=== PATIENT | male | born 1995 | race African-American/Black ===

== ENCOUNTER 2018-10-29 16:36 | Emergency (ER) | payer OTHER, SELFPAY ==
[2018-10-29 16:41] VITALS: BP 148/83; PULSE 130; RESP 16; TEMP 37; O2SAT 97
[2018-10-29 17:38] LABS: Bilirubin Negative (Negative); Blood Negative (Negative); Clarity Clear; Glucose Negative (Negative); Ketones Trace mg/dL (Negative); Leukocyte Esterase Negative (Negative); Nitrite Negative (Negative); Specific Gravity 1.025 (1.005-1.025); Urobilinogen 0.2 EU/dL (Up TO 0.2); pH 5.5 (5-8)
--- NOTE | 2018-10-29 17:48 | W.ED.GENAD ---
Discharge Plan Disposition Patient Disposition: HOME Condition: Good Discharge Details Chief Complaint: Urinary Clinical Impression: Urethritis Primary Care Provider: [facility] ED Provider: Anthony Hein Home Meds and New Rx's Prescriptions: No Action No Known Home Meds RF: 0 Discharge Instructions Instructions: Nonspecific Urethritis in Men (ED) Additional Instructions: Return immediately to the emergency department for any new or worsening symptoms. If your test results come back positive we will contact you and have you return for recommended treatment. Continue to practice safe sex to prevent STI transmission and exposure Referrals: Primary Care Provider [Outside] (As needed for reassessment. He may also present to [facility] for any further testing for sexually transmitted infections) Discharge Data Discharge Date/Time-TO BE ENTERED AT DEPARTURE: 10/29/18 18:12 Medical Decision Making Patient presenting to the emergency department for chief complaint of urethritis. Patient states that symptoms started yesterday. Patient reports history of gonorrhea chlamydia approximately 7 years ago which she received appropriate treatment for and this does not feel similar in nature but due to unprotected sex approximately a month ago patient states concern and is requesting screening test. Patient denies any fever chills, rash, lesion, persistent pain or discomfort, sores, or any other medical complaint at this time. Physical exam is unremarkable with no discharge noted, no painless lesions, no open sores or vesicles. Discussed with patient gonorrhea chlamydia testing that could be sent along with immediate urinalysis for evaluation. Review of tests show no acute findings on urinalysis but I did discuss with patient risk versus benefit of prophylactic treatment. Patient states that he feels that this is just more mental due to previous exposure and that he states for the most part he is asymptomatic but due to unprotected sex he was concerned. Patient was offered prophylactic treatment which at this time he stated he would prefer to wait for final results of urine specimen. Patient encouraged to return for any new or worsening symptoms and to remain abstinent until test results were received. After discussion of diagnosis and plan of care patient has no further needs, questions, or concerns and states clear understanding to return to the emergency department for any worsening symptoms. HPI General Mode of arrival: ambulatory. Date/Time Provider Initiated Documentation: 10/29/18 16:37. Limitations to Documentation: no limitations. Information obtained by: RN notes reviewed. History of Present Illness 23 year old M presents to the emergency department with the chief complaint of Urethral discomfort, described as mild, with intensity rated at 1. Quality is described as other (pressure), and is localized to the genitals. Patient reports no radiation. Patient started experiencing this day(s) and it has been intermittent. No relieving factors improve symptom(s), No exacerbating factors reported . Patient notes no other symptoms.. Patient did receive the following treatments prior to arrival, none Related Data Home Medications Medication Instructions Recorded Confirmed Unknown [No Known Home Meds] 05/19/18 10/29/18 Allergies Allergy/AdvReac Type Severity Reaction Status Date / Time amoxicillin Allergy Severe Anaphylaxsi Unverified 10/29/18 16:45 s Penicillins Allergy Severe Anaphylaxsi Unverified 10/29/18 16:45 s General Stated Complaint: Urinary SINDHU: 4 Review of Systems Constitutional Denies body ache(s), Denies chills, Denies fever(s), Denies malaise and Denies weakness Cardiovascular Denies chest pain Gastrointestinal Denies abdominal pain, Denies nausea and Denies vomiting Genitourinary Reports as per HPI, Denies hematuria, Denies difficulty urinating, Denies genital lesions, Denies dysuria, Denies painful ejaculations, Denies penile discharge, Denies scrotal swelling and Denies urinary urgency Integumentary/Breasts Denies lesions and Denies rash Neurologic Denies confusion and Denies weakness Psychiatric [facility] Social History Smoking/Tobacco Use Status: Former Tobacco Use Social History Smoking/Tobacco Use Status: Former Tobacco Use Exam Const General: cooperative, healthy appearing, comfortable and no acute distress Orientation: alert, awake and oriented x3 Resp Effort & Inspection: normal respiratory effort and able to speak in complete sentences GI Palpation: nontender Male General Exam: Yes normal external exam and No inguinal lymphadenopathy Penis: normal penis Meatus: meatus normal and no meatla discharge Scrotum: scrotum normal Testes: normal, testicular lie normal and epididymides normal Back/Spine/Pelvis Back: no CVA tenderness Neuro General: alert, awake and oriented x3 Extrem General: normal capillary refill Course Vital Signs Temperature 37 C 10/29/18 16:41 Pulse 130 H 10/29/18 16:41 Respiratory Rate 16 10/29/18 16:41 Blood Pressure 148/83 H 10/29/18 16:41 Pulse Oximetry 97 10/29/18 16:41 Temperature 37 C 10/29/18 16:41 Temperature Source Skin 10/29/18 16:41 Pulse 130 H 10/29/18 16:41 Respiratory Rate 16 10/29/18 16:41 Respiratory Effort 10/29/18 16:41 Blood Pressure 148/83 H 10/29/18 16:41 Blood Pressure Position Sitting 10/29/18 16:41 Pulse Oximetry 97 10/29/18 16:41 Oxygen Delivery Method Room Air 10/29/18 16:41 Oxygen Flow Rate 0 10/29/18 16:41 Pain Level 0 10/29/18 16:41 Lab/Test Results Lab/Test Results: Laboratory Tests Range/Units 10/29/18 17:25 Urine Color (Yellow) Yellow Urine Clarity Clear Urine pH (5-8) 5.5 Ur Specific [place] (1.005-1.025) 1.025 Urine Protein (Negative) mg/dL Negative Urine Ketones (Negative) mg/dL Trace H Urine Blood (Negative) Negative Urine Nitrite (Negative) Negative Urine Bilirubin (Negative) Negative Urine Urobilinogen (Up TO 0.2) EU/dL 0.2 Ur Leukocyte Esterase (Negative) Negative Urine Glucose (Negative) mg/dL Negative
--- NOTE | 2018-10-29 17:51 | ED.GENADUL_ITS ---
Discharge Plan Disposition Patient Disposition: HOME Condition: Good Discharge Details Chief Complaint: Urinary Clinical Impression: Urethritis Primary Care Provider: MilenaLocal ED Provider: Anthony Hein Home Meds and New Rx's Prescriptions: No Action No Known Home Meds RF: 0 Discharge Instructions Instructions: Nonspecific Urethritis in Men (ED) Additional Instructions: Return immediately to the emergency department for any new or worsening symptoms. If your test results come back positive we will contact you and have you return for recommended treatment. Continue to practice safe sex to prevent STI transmission and exposure Referrals: Primary Care Provider [Outside] (As needed for reassessment. He may also present to [facility] for any further testing for sexually transmitted infections) Discharge Data Discharge Date/Time-TO BE ENTERED AT DEPARTURE: 10/29/18 18:12 Medical Decision Making Patient presenting to the emergency department for chief complaint of urethritis. Patient states that symptoms started yesterday. Patient reports history of gonorrhea chlamydia approximately 7 years ago which she received appropriate treatment for and this does not feel similar in nature but due to unprotected sex approximately a month ago patient states concern and is requesting screening test. Patient denies any fever chills, rash, lesion, persistent pain or discomfort, sores, or any other medical complaint at this time. Physical exam is unremarkable with no discharge noted, no painless lesions, no open sores or vesicles. Discussed with patient gonorrhea chlamydia testing that could be sent along with immediate urinalysis for evaluation. Review of tests show no acute findings on urinalysis but I did discuss with patient risk versus benefit of prophylactic treatment. Patient states that he feels that this is just more mental due to previous exposure and that he states for the most part he is asymptomatic but due to unprotected sex he was concerned. Patient was offered prophylactic treatment which at this time he stated he would prefer to wait for final results of urine specimen. Patient encouraged to return for any new or worsening symptoms and to remain abstinent until test results were received. After discussion of diagnosis and plan of care patient has no further needs, questions, or concerns and states clear understanding to return to the emergency department for any worsening symptoms. HPI General Mode of arrival: ambulatory . Date/Time Provider Initiated Documentation: 10/29/18 16:37 . Limitations to Documentation: no limitations . Information obtained by: RN notes reviewed . History of Present Illness 23 year old M presents to the emergency department with the chief complaint of Urethral discomfort, described as mild, with intensity rated at 1. Quality is described as other (pressure), and is localized to the genitals. Patient reports no radiation. Patient started experiencing this day(s) and it has been intermittent. No relieving factors improve symptom(s), No exacerbating factors reported . Patient notes no other symptoms.. Patient did receive the following treatments prior to arrival, none Related Data Home Medications Medication Instructions Recorded Confirmed Unknown [No Known Home Meds] 05/19/18 10/29/18 Allergies Allergy/AdvReac Type Severity Reaction Status Date / Time amoxicillin Allergy Severe Anaphylaxsi Unverified 10/29/18 16:45 s Penicillins Allergy Severe Anaphylaxsi Unverified 10/29/18 16:45 s General Stated Complaint: Urinary SINDHU: 4 Review of Systems Constitutional Denies body ache(s), Denies chills, Denies fever(s), Denies malaise and Denies weakness Cardiovascular Denies chest pain Gastrointestinal Denies abdominal pain, Denies nausea and Denies vomiting Genitourinary Reports as per HPI, Denies hematuria, Denies difficulty urinating, Denies genital lesions, Denies dysuria, Denies painful ejaculations, Denies penile discharge, Denies scrotal swelling and Denies urinary urgency Integumentary/Breasts Denies lesions and Denies rash Neurologic Denies confusion and Denies weakness [facility] Social History Smoking/Tobacco Use Status: Former Tobacco Use Social History Smoking/Tobacco Use Status: Former Tobacco Use Exam Const General: cooperative, healthy appearing, comfortable and no acute distress Orientation: alert, awake and oriented x3 Resp Effort & Inspection: normal respiratory effort and able to speak in complete sentences GI Palpation: nontender Male General Exam: Yes normal external exam and No inguinal lymphadenopathy Penis: normal penis Meatus: meatus normal and no meatla discharge Scrotum: scrotum normal Testes: normal, testicular lie normal and epididymides normal Back/Spine/Pelvis Back: no CVA tenderness Neuro General: alert, awake and oriented x3 Extrem General: normal capillary refill Course Vital Signs Temperature 37 C 10/29/18 16:41 Pulse 130 H 10/29/18 16:41 Respiratory Rate 16 10/29/18 16:41 Blood Pressure 148/83 H 10/29/18 16:41 Pulse Oximetry 97 10/29/18 16:41 Temperature 37 C 10/29/18 16:41 Temperature Source Skin 10/29/18 16:41 Pulse 130 H 10/29/18 16:41 Respiratory Rate 16 10/29/18 16:41 Respiratory Effort 10/29/18 16:41 Blood Pressure 148/83 H 10/29/18 16:41 Blood Pressure Position Sitting 10/29/18 16:41 Pulse Oximetry 97 10/29/18 16:41 Oxygen Delivery Method Room Air 10/29/18 16:41 Oxygen Flow Rate 0 10/29/18 16:41 Pain Level 0 10/29/18 16:41 Lab/Test Results Lab/Test Results: Laboratory Tests Range/Units 10/29/18 17:25 Urine Color (Yellow) Yellow Urine Clarity Clear Urine pH (5-8) 5.5 Ur Specific [place] (1.005-1.025) 1.025 Urine Protein (Negative) mg/dL Negative Urine Ketones (Negative) mg/dL Trace H Urine Blood (Negative) Negative Urine Nitrite (Negative) Negative Urine Bilirubin (Negative) Negative Urine Urobilinogen (Up TO 0.2) EU/dL 0.2 Ur Leukocyte Esterase (Negative) Negative Urine Glucose (Negative) mg/dL Negative
[2018-11-02 14:23] LABS: Chlamydia Result Negative; GC Result Negative; Specimen Description URINE
== END 2018-10-29 18:12 | disposition home or self-care (01) ==
LOC: ER 18:14
PROVIDERS: Emergency Provider Nurse Practitioner Family
DX: N34.1 Nonspecific urethritis (principal)
CPT/HCPCS: 87491; 87591; 99282; 81003

== ENCOUNTER 2019-10-25 16:50 | Emergency (ER) | payer BC, SELFPAY ==
[2019-10-25 16:53] VITALS: BP 151/90; PULSE 123; RESP 20; TEMP 39.3; O2SAT 97
[2019-10-25] MEDS: Acetaminophen 500 MG TAB 1000 MG PO (17:25)
[2019-10-25] MEDS: Ketorolac 30 MG/ML VIAL IVP (17:25)
[2019-10-25] MEDS: Normal Saline 1,000 ML 1000 ML IV (17:25)
--- NOTE | 2019-10-25 17:26 | W.ED.GENAD ---
Discharge Plan Disposition Patient Disposition: HOME Condition: Good Discharge Details Chief Complaint: RespSymp Clinical Impression: Viral illness Primary Care Provider: Milena,Local ED Provider: Luiz Lemos Home Meds and New Rx's Prescriptions: New oseltamivir [Tamiflu] 75 mg capsule 75 mg PO BID 5 Days Qty: 10 RF: 0 No Action ibuprofen [Advil] 200 mg Tablet 800 mg PO PRN PRNRF: 0 Discharge Instructions Instructions: Viral Syndrome (ED) Additional Instructions: At this time you if symptoms notably concerning for a viral illness. Although your flu test is negative I suspect that it is from influenza. At this time you show no evidence of meningitis, however your symptoms can always worsen, and if they do you need to return immediately. Please take the Tamiflu as directed. Please take maximum dose of 1000 mg of Tylenol and 800 mg of ibuprofen every 6 hours. Please drink 10 to 12 cups of fluid per day. Please rest as much as possible, wear a mask whenever you are in public, and wash your hands frequently. If you notice any worsening of your symptoms, or any new symptoms such as vomiting, diarrhea, fever, chills, shortness of breath, chest pain, numbness, weakness, or fainting , please return immediately to the emergency department for reevaluation. Please follow up with your primary care provider as soon as possible for reassessment and reevaluation. As always, it was a pleasure participating in your medical care today. Stand Alone Forms: Work Release Medical Decision Making This is a pleasant 24-year-old male who presents today for symptoms of fever, fatigue, sore throat, cough congestion. Symptoms been present for the last 24 hours. He has not gotten his flu shot but he is otherwise up-to-date on his immunizations. Physical exam demonstrates clear lungs, unremarkable posterior oropharynx. Neck is supple, no nuchal rigidity, no clinical evidence of meningismus. Negative Kernig's and Brudzinski's. Signs and symptoms are concerning for viral or influenza-like illness. Inconsistent with mono at this time. Inconsistent with meningitis at this time. However the patient significant other did have meningitis over 4 months ago, I did discuss the risks and benefits of further diagnostic work-up including lumbar puncture, however at this point the patient is refused LP and would like to hold off on that. I did discuss the risks of holding off on further diagnostic evaluation he certainly does understand. Strep test is negative. Rapid flu was negative, however signs and symptoms are notably consistent and concerning for influenza. We will rehydrate the patient, treat with Tylenol Motrin, and reassess. 6:20 PM Reassessment the patient's heart rate is notably improved, fever improved. He is feeling much better, headache is notably improved after Tylenol Motrin fluids. He is tolerating p.o. well. He continues to request holding off on lumbar puncture. Of note clinically he continues to show no signs of concern for meningitis. Influenza test was negative, however signs and symptoms are notably concerning for flu. Of clinical concern and the brevity of his symptoms we will start the patient on Tamiflu. Recommend continue Tylenol Motrin, close follow-up with his PCP. Discussed red flags which to return. First dose of Tamiflu will be given here. I have extensively reviewed the treatment plan and discharge instructions with the patient. I have addressed all patient concerns at this time. The patient was made aware of what symptoms to monitor for that would warrant a return to the emergency department. Discussed the plan with the patient, they demonstrate verbal understanding and agreement with our assessment and plan at this time. HPI General Date/Time Provider Initiated Documentation: 10/25/19 16:50. HPI Narrative: This is a 24-year-old male who presents today for evaluation of cough, fatigue, mild headache, fever. Patient states that for the last 24 hours he has had the symptoms, he admits to associated mild sore throat. He did take some NSAIDs early this morning, but none since then. He denies any vomiting or diarrhea. He states that the headache is not the worst of his life. He denies any significant neck stiffness, he does admit to mild achiness so. He denies any vision changes, numbness tingling or weakness. He denies any other complaints at this time. No other modifying factors. He denies any other sick contacts. Of note he does state that his significant other did have meningitis over 4 months ago, however has otherwise been asymptomatic since then. The patient states that he is up-to-date on his immunizations but did not get his flu shot this year. Related Data Home Medications Medication Instructions Recorded Confirmed ibuprofen [Advil] 800 mg PO PRN PRN 10/25/19 10/25/19 oseltamivir [Tamiflu] 75 mg PO BID 5 Days #10 cap 10/25/19 Previous Rx's Medication Instructions Recorded oseltamivir [Tamiflu] 75 mg PO BID 5 Days #10 cap 10/25/19 Allergies Allergy/AdvReac Type Severity Reaction Status Date / Time amoxicillin Allergy Severe Anaphylaxsi Unverified 10/25/19 16:56 s Penicillins Allergy Severe Anaphylaxsi Unverified 10/25/19 16:56 s General Stated Complaint: RespSymp SINDHU: 3 Review of Systems All systems reviewed & are unremarkable except as noted in HPI and below PFSH Social History Smoking/Tobacco Use Status: Former Tobacco Use Alcohol Intake: current Alcohol Intake frequency: holidays/special occasions only Drug use: Occasionally Substance use type: marijuana Do you feel safe at home: Yes Do you feel safe in your relationship?: Yes Exam Narrative Exam Narrative: 1.Const: Well-nourished, Well-developed, appearing stated age 2.Eyes: PERRL, no conjunctival injection, and symmetrical lids. 3.ENT: Atraumatic external nose and ears. Notably dry MM. Neck: Symmetric, trachea midline, No thyromegaly. Patient demonstrates good movement of cervical neck. There is no nuchal rigidity, no nuchal tenderness. Patient is able to flex the neck without any difficulty or significant pain. Negative Kernig's and Brudzinski sign. No significant erythema in the posterior oropharynx. No tonsillar exudate. No vesicles. 4.CVS: +S1/S2, No murmurs or gallops. Peripheral pulses 2+ and equal in all extremities. Brisk capillary refill in all extremities. 5.RESP: Unlabored respiratory effort. Clear to auscultation bilaterally. No wheezes rales or rhonchi 6.GI: Soft, Nontender/Nondistended, No hepatosplenomegaly. No guarding or rebound. 7.MSK: Normocephalic/Atraumatic, Extremities w/o deformity or ttp No cyanosis or clubbing, Normal movement of all extremities 8.Skin: Warm, Dry. No rashes or lesions. 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 Sensation grossly intact, no focal neurologic deficits. 10.Psych: (AAO) x3. Appropriate mood and affect Course Vital Signs Vital signs: Vital Signs Temperature 39.3 C H 10/25/19 16:53 Pulse 123 H 10/25/19 16:53 Respiratory Rate 20 10/25/19 16:53 Blood Pressure 151/90 H 10/25/19 16:53 Pulse Oximetry 97 10/25/19 16:53 Temperature 39.3 C H 10/25/19 16:53 Temperature Source Oral 10/25/19 16:53 Pulse 123 H 10/25/19 16:53 Respiratory Rate 20 10/25/19 16:53 Respiratory Effort Non-Labored 10/25/19 17:00 Respiratory Depth Normal 10/25/19 17:00 Blood Pressure 151/90 H 10/25/19 16:53 Blood Pressure Position Sitting 10/25/19 16:53 Pulse Oximetry 97 10/25/19 16:53 Oxygen Delivery Method Room Air 10/25/19 16:53 Oxygen Flow Rate 0 10/25/19 16:53 Pain Level 7 10/25/19 16:53 Lab/Test Results Lab/Test Results: 10/25/19 17:03 Nasopharynx Influenza Types A,B Antigen - Final 10/25/19 17:06 Pharynx Streptococcus Screen ([facility]) - Pending POC Strep Test-BERE(Rapid) Start: 10/25/19 17:02 Freq: Status: Active Protocol: Document 10/25/19 17:11 (Rec: 10/25/19 17:11 MR [id number]) Strep test-BERE(Rapid)-POC POC-Strep test-BERE (Rapid) Negative POC-Strep test-BERE (Rapid) Negative
[2019-10-25] MEDS: Oseltamivir 75 MG CAP PO (18:22)
[2019-10-25 18:24] VITALS: BP 141/76; PULSE 107; RESP 18; TEMP 37.9; O2SAT 95
[2019-10-25 18:35] VITALS: BP 141/76; PULSE 107; RESP 18; TEMP 37.9; O2SAT 95
== END 2019-10-25 18:35 | disposition home or self-care (01) ==
PROVIDERS: Emergency Provider Student in an Organized Health Care Education/Training Program
DX: R50.9 Fever, unspecified (principal); J02.9 Acute pharyngitis, unspecified; R05 Cough; R53.83 Other fatigue; B34.9 Viral infection, unspecified
CPT/HCPCS: 87449; 87880; 96361; 96374; 99284; 87081; 99283; J1885

== ENCOUNTER 2020-08-15 11:33 | Emergency (ER) | payer BC, SELFPAY ==
[2020-08-15 11:40] VITALS: BP 136/70; PULSE 66; RESP 20; TEMP 36.6; O2SAT 97
--- NOTE | 2020-08-15 12:10 | W.ED.GENAD ---
Discharge Plan Disposition Patient Disposition: HOME Condition: Stable Discharge Details Clinical Impression: Cellulitis Primary Care Provider: Lamont Silva ED Provider: Fco Pabon Home Meds and New Rx's Prescriptions: New sulfamethoxazole-trimethoprim [Bactrim DS] 800-160 mg tablet 1 tab PO BID Qty: 20 RF: 0 Continued ibuprofen [Advil] 200 mg Tablet 800 mg PO PRN PRNRF: 0 Discharge Instructions Instructions: Cellulitis (ED) Additional Instructions: Keep the area clean and dry. I do recommend changing antibiotic dressing daily. [id number] Tylenol and/or Motrin as directed for discomfort. Bactrim as directed. Please watch for new or worsening symptoms and return to the ER for any concerns Medical Decision Making Patient presents concerned of a left knee infection. Clinically he has an abrasion with what appears to be very early cellulitis. No evidence of fever, septic joint, foreign body, lymphangitic streaking. Will update his tetanus status. Given his allergy to penicillin family will avoid cephalosporins and placed on Bactrim. The area was cleaned and dressed. Medical Records Medical records reviewed: Yes I reviewed the patient's medical records. HPI General Mode of arrival: ambulatory. Date/Time Provider Initiated Documentation: 08/15/20 11:42. Limitations to Documentation: no limitations. Information obtained by: patient. HPI Narrative: 24-year-old gentleman, no significant past medical history, presents to the ER concerns of a left knee infection. Reports that last Friday while sliding into a base playing baseball he sustained a abrasion to his knee. He was keeping the area clean and dry, subsequently slid into another base a few days later and a re-opened the abrasion. Now the area is becoming more painful, red, mild drainage. He is concerned of infection. He reports that his tetanus status is not up-to-date. He denies fever, numbness, tingling, weakness, rash or infection elsewhere on his body. Related Data Home Medications Medication Instructions Recorded Confirmed ibuprofen [Advil] 800 mg PO PRN PRN 10/25/19 08/15/20 sulfamethoxazole-trimethoprim 1 tab PO BID #20 tab 08/15/20 [Bactrim DS] Previous Rx's Medication Instructions Recorded sulfamethoxazole-trimethoprim 1 tab PO BID #20 tab 08/15/20 [Bactrim DS] Allergies Allergy/AdvReac Type Severity Reaction Status Date / Time amoxicillin Allergy Severe Anaphylaxsi Unverified 08/15/20 11:46 s Penicillins Allergy Severe Anaphylaxsi Unverified 08/15/20 11:46 s General Stated Complaint: Cellulitis SINDHU: 4 Review of Systems Constitutional Constitutional: Denies fever(s) Musculoskeletal Musculoskeletal: Denies arthralgias, Denies numbness and Denies tingling Integumentary/Breasts Skin/Breast: Reports erythema Neurologic Neurologic: Denies numbness and Denies tingling [facility] Social History Smoking/Tobacco Use Status: Former Tobacco Use Alcohol Intake: current Alcohol Intake frequency: holidays/special occasions only Drug use: Occasionally Substance use type: marijuana Do you feel safe at home: Yes Do you feel safe in your relationship?: Yes Exam Const General: cooperative, healthy appearing, comfortable and no acute distress Orientation: alert and awake HENMT Head: normal to inspection, normocephalic and atraumatic Mouth: moist mucous membranes Eyes Conjunctivae: conjunctivae normal Neck Neck: normal visual inspection, trachea midline and supple Resp Effort & Inspection: normal respiratory effort and able to speak in complete sentences Cardio Rate: regular rate Rhythm: regular rhythm Skin General skin exam: no rashes or lesions noted Neuro General: patient alert, patient awake, moves all extremities and no focal motor deficits Sensory Exam: no sensory deficits noted Extrem Knee images: 1. There is a quarter size area of abrasion, erythema, warmth, tenderness. No obvious foreign body. No drainage. No induration or fluctuance. Full range of motion of the knee. No discomfort to the patella. Neuro, vascular, tendon intact Psych Appearance: grossly normal Mental Status: mental status grossly normal Course Vital Signs Vital signs: Vital Signs Temperature 36.6 C 08/15/20 11:40 Pulse 66 08/15/20 11:40 Respiratory Rate 08/15/20 11:40 Blood Pressure 136/70 08/15/20 11:40 Pulse Oximetry 97 08/15/20 11:40 Temperature 36.6 C 08/15/20 11:40 Temperature Source Skin 08/15/20 11:40 Pulse 66 08/15/20 11:40 Respiratory Rate 08/15/20 11:40 Respiratory Effort Non-Labored 08/15/20 11:54 Blood Pressure 136/70 08/15/20 11:40 Blood Pressure Position Sitting 08/15/20 11:40 Pulse Oximetry 97 08/15/20 11:40 Oxygen Delivery Method Room Air 08/15/20 11:40 Oxygen Flow Rate 0 08/15/20 11:40
[2020-08-15 12:23] VITALS: BP 136/70; PULSE 66; RESP 20; TEMP 36.6; O2SAT 97
== END 2020-08-15 12:22 | disposition home or self-care (01) ==
PROVIDERS: Emergency Provider Physician Assistant; PCP Family Medicine
DX: L03.116 Cellulitis of left lower limb (principal); S80.212A Abrasion, left knee, initial encounter; W19.XXXA Unspecified fall, initial encounter; Y93.64 Activity, baseball
CPT/HCPCS: 90471; 99284; 99283

== ENCOUNTER 2021-06-18 01:01 | Outpatient (CLI) | payer BC, SELFPAY ==
--- NOTE | 2021-06-18 | DI.RAD_ITS ---
Exam(s) XR LUMBAR SPINE COMPLETE EXAM: XR LUMBAR SPINE COMPLETE CLINICAL HISTORY: LUMBAR BACK PAIN, M54.5,THORACIC BACK PAIN,M54.9. TECHNIQUE: 2D digital imaging was performed. COMPARISON: No exams were available for comparison FINDINGS: Is no evidence of fracture or listhesis. No pars defects. All the disc spaces exhibit normal height . Facet joints unremarkable. Sacroiliac joints unremarkable. No scoliosis. IMPRESSION: No significant radiograph findings on these five views of the lumbosacral spinal column. DATA REPOSITORY: RADIATION DOSE DELIVERED:
== END 2021-06-18 01:21 ==
PROVIDERS: Visit Provider Physician Assistant
DX: M54.5 Low back pain (principal); M54.6 Pain in thoracic spine
CPT/HCPCS: 72110

== ENCOUNTER 2021-09-04 15:00 | Outpatient (CLI) | payer BC, SELFPAY ==
--- NOTE | 2021-09-04 | DI.RAD_ITS ---
Exam(s) XR FINGER LT MIDDLE EXAM: XR FINGER LT MIDDLE CLINICAL HISTORY: LT FINGER PAIN M79.645, PAIN AFTER TWISTING INJURY SEVERAL WEEKS AGO. TECHNIQUE: 2D digital imaging was performed. COMPARISON: CR LEFT LITTLE FINGER-POST REDUCT from 05/19/2018 FINDINGS: On the lateral view there is a 1 millimeter osteophytic density off the volar aspect of the base of t he middle phalanx the 3rd-middle finger consistent with avulsion injury. There is mild surrounding s oft tissue swelling. No osseous lesion evident. IMPRESSION: Small avulsion fracture off the volar base of the middle phalanx of the 3rd-middle finger DATA REPOSITORY: RADIATION DOSE DELIVERED:
== END 2021-09-04 15:20 ==
LOC: DI 15:02
PROVIDERS: Visit Provider Physician Assistant
DX: M79.645 Pain in left finger(s) (principal); S62.622A Displaced fracture of middle phalanx of right middle finger, initial encounter for closed fracture; X58.XXXA Exposure to other specified factors, initial encounter
CPT/HCPCS: 73140

== ENCOUNTER 2021-09-26 08:06 | Emergency (ER) | payer BC, SELFPAY ==
--- NOTE | 2021-09-26 08:08 | ED.GENADUL_ITS ---
Discharge Plan Disposition Patient Disposition: HOME Condition: Stable Discharge Details Clinical Impression: Exudative tonsillitis Primary Care Provider: Felix Crow ED Provider: Fco Pabon Home Meds and New Rx's Prescriptions: New azithromycin 250 mg tablet See Rx Instructions .ROUTE .COMPLEX Qty: 6 RF: 0 Continued ibuprofen [Advil] 200 mg Tablet 400 mg PO PRN PRNRF: 0 Discharge Instructions Instructions: Tonsillitis (ED) Additional Instructions: Z-pack as directed. OTC medications as directed. Watch for new/worsening symptoms and return to the ER for any concerns Medical Decision Making This is a 26-year-old male presenting for 4-day history of sore throat. Denies any sick contacts. Has been tested negative for Covid twice this week. Reports fever, lack of cough, clinically he has exhibited tonsillitis, and tender anterior cervical lymphadenopathy. Given his criteria, I believe treating with antibiotic therapy is reasonable. I do not see clear indication to repeat testing for Covid. Rapid strep was sent per protocol prior to my evaluation. Patient appears well, nontoxic, managing his own secretions without difficulty. No evidence of trismus, sepsis, airway compromise. Rapid strep negative. Discussed negative strep, culture pending. Discussed treatment options. Given his amoxicillin allergy will provide a Z-[place]. He may suggest now or wait until the culture has resulted. Patient has no additional questions or concerns. Standard discharge and return precautions provided This documentation was generated using Undaation system, please disregard any oddities of phrase or misspellings. Medical Records Medical records reviewed: Yes I reviewed the patient's medical records. Lab Data Lab results reviewed: Yes I reviewed the patient's lab results. Labs: Negative rapid strep, culture pending HPI General Mode of arrival: ambulatory . Date/Time Provider Initiated Documentation: 09/26/21 08:08 . Limitations to Documentation: no limitations . Information obtained by: patient . History of Present Illness described as moderate, with intensity rated at 4. Quality is described as aching, and is localized to the neck. Patient reports radiation to (ears). Patient started experiencing this day(s) (4) and it has been constant. No relieving factors improve symptom(s), No exacerbating factors reported . Patient notes fever/chills and headaches. Patient did receive the following treatments prior to arrival, cold therapy and other (2 neg covid test over last week) Related Data Home Medications Medication Instructions Recorded Confirmed ibuprofen [Advil] 400 mg PO PRN PRN 10/25/19 09/26/21 azithromycin See Rx Instructions .ROUTE 09/26/21 .COMPLEX #6 tab Previous Rx's Medication Instructions Recorded azithromycin See Rx Instructions .ROUTE 09/26/21 .COMPLEX #6 tab Allergies Allergy/AdvReac Type Severity Reaction Status Date / Time amoxicillin Allergy Severe Anaphylaxsi Unverified 09/26/21 08:17 s Penicillins Allergy Severe Anaphylaxsi Unverified 09/26/21 08:17 s General SINDHU: 4 Review of Systems Constitutional Constitutional: Reports fever(s) and Reports headache(s) ENT Ears, Nose, Mouth, and Throat: Reports headache(s), Reports sore throat, Denies throat swelling and Denies tongue swelling Cardiovascular Cardiovascular: Denies dyspnea Respiratory Respiratory: Denies cough and Denies dyspnea Gastrointestinal Gastrointestinal: Denies abdominal pain, Denies nausea and Denies vomiting Genitourinary Genitourinary: Denies dysuria Integumentary/Breasts Skin/Breast: Denies rash Neurologic Neurologic: Reports headache(s) Allergic/Immunologic Allergic/Immunologic: Denies throat swelling and Denies tongue swelling [facility] Social History Smoking/Tobacco Use Status: Former Tobacco Use Smoking risk assessment performed?: Yes Alcohol Intake: current Alcohol Intake frequency: holidays/special occasions only Drug use: Occasionally Substance use type: marijuana Current gender identity: male Do you feel safe at home: Yes Do you feel safe in your relationship?: Yes Exam Const General: cooperative, healthy appearing, comfortable and no acute distress Orientation: alert and awake [facility] Head: normal to inspection, normocephalic and atraumatic Ears: external ears normal, TM's normal bilaterally and EAC's normal General nose exam: external nose normal and no nasal discharge Face and sinus: normal facial exam Mouth: oral mucosae normal and moist mucous membranes Teeth and gingiva: dentition normal Throat: uvula midline, abnormal tonsil bilaterally erythema, exudates and hypertrophy 1+, no peritonsillar masses, posterior oropharynx abnormal erythema, uvula not displaced and no uvular edema Eyes General: appearance normal, both eyes and all related structures Conjunctivae: conjunctivae normal Neck Neck: normal visual inspection, full ROM, trachea midline and supple Lymphatic: lymphadenopathy bilateral anterior cervical Resp Effort & Inspection: normal respiratory effort and able to speak in complete sentences Auscultation: clear to auscultation bilaterally Cardio Rate: regular rate Rhythm: regular rhythm Skin General skin exam: no rashes or lesions noted Neuro General: patient alert, patient awake, moves all extremities and no focal motor deficits Sensory Exam: no sensory deficits noted Psych Appearance: grossly normal Mental Status: mental status grossly normal
[2021-09-26 08:13] VITALS: BP 147/81; PULSE 82; RESP 16; TEMP 36.5; O2SAT 100
[2021-09-26 08:32] VITALS: BP 163/75; PULSE 78; RESP 16; TEMP 36.1; O2SAT 98
== END 2021-09-26 08:32 | disposition home or self-care (01) ==
PROVIDERS: Emergency Provider Physician Assistant; PCP Physician Assistant
DX: J03.90 Acute tonsillitis, unspecified (principal)
CPT/HCPCS: 87880; 99283; 87081

== ENCOUNTER 2021-12-09 12:21 | Emergency (ER) | payer BC, SELFPAY ==
[2021-12-09 12:26] VITALS: BP 131/79; PULSE 89; RESP 16; TEMP 36.7; O2SAT 99
--- NOTE | 2021-12-09 12:52 | W.ED.GENAD ---
Discharge Plan Disposition Patient Disposition: HOME Condition: Stable Discharge Details Clinical Impression: Dysuria Primary Care Provider: Felix Crow ED Provider: Fco Pabon Home Meds and New Rx's Prescriptions: New sulfamethoxazole-trimethoprim [Bactrim DS] 800-160 mg tablet 1 tab PO BID Qty: 10 RF: 0 Continued dextroamphetamine-amphetamine 10 mg capsule,extended release 24hr 10 mg PO DAILY PRN PRNRF: 0 Discharge Instructions Instructions: Dysuria (ED) Additional Instructions: As we discussed, your urinalysis has some leuk esterase and 5-10 white cells which could be consistent with a very early UTI and after using shared decision making, chose to initiate antibiotic therapy. As we discussed, this could be an STD, your GC and chlamydia are pending but you do not want to pursue any treatment for this. Please watch for new or worsening symptoms and return to the ER for any concerns. Otherwise I recommend reaching out to your primary care provider to discuss your ER visit, ongoing symptoms, need for outpatient reevaluation and for screening of STD Discharge Data Discharge Date/Time-TO BE ENTERED AT DEPARTURE: 12/09/21 14:59 Medical Decision Making 26-year-old gentleman reports tingling to the tip of his penis and mild dysuria since Friday evening. He denies any lesions to his penis, drainage, fever, abdominal pain, nausea, vomiting, pain in his testicles or scrotum, known STD exposure. Reports that his partner is asymptomatic. Patient does not believe that the ED. His examination is unremarkable, he appears well, nontoxic, no penile abnormality, lesion, drainage. He is circumcised. He initially reported tingling at the tip of his penis which made me think of potential neuropathy and/or HSV but he denies any painful lesions and again his examination is unremarkable. We did discuss the importance of watching for any lesions and the importance of outpatient reevaluation. Plan is to obtain a urinalysis and obtain a dirty urine for GC and chlamydia. Given his symptoms, I did recommend treating for GC and chlamydia but patient declines. He states he has had no STD exposures or reason to believe this is an STD. His urinalysis reveals trace leukoesterase 5-10 white cells, few bacteria. GC and chlamydia pending. Based upon his symptoms, and finding of leuk esterase, 5-10 white cells, and few bacteria, certainly concerning for potential infection. I have also ordered a culture. Discussed results with the patient. We again discussed treating for potential STD but he again declines. He would prefer to treat this as a potential UTI. Plan is to give 5 days worth of p.o. Bactrim. Discussed safe sex practices, and the importance of outpatient follow-up for reevaluation, full STD screening, and potential referral to urology if symptoms are to persist. Standard discharge and return precautions provided. This documentation was generated using [id number] system, please disregard any oddities of phrase or misspellings. Medical Records Medical records reviewed: Yes I reviewed the patient's medical records. Lab Data Lab results reviewed: Yes I reviewed the patient's lab results. Labs: 12/09/21 14:18 Urine - Voided Urine Culture - Pending Laboratory Tests Range/Units 12/09/21 13:40 Urine Color (Yellow) Yellow Urine Clarity (Clear) Clear Urine pH (5-8) 6.0 Ur Specific [place] (1.005-1.025) >= 1.030 H Urine Protein (Negative) mg/dL Negative Urine Ketones (Negative) mg/dL Negative Urine Blood (Negative) Negative Urine Nitrite (Negative) Negative Urine Bilirubin (Negative) Negative Urine Urobilinogen (Up TO 0.2) EU/dL 0.2 Ur Leukocyte Esterase (Negative) Trace H Urine RBC (0-2) HPF 0-2 Urine WBC (0-5) HPF 5-10 Ur Epithelial Cells (Negative) HPF Few Urine Crystals (Negative) HPF Negative Urine Bacteria (Negative) HPF Few Urine Casts (Negative) LPF Negative Urine Mucus (Negative) Heavy Ur Culture Indicated? No Urine Glucose (Negative) mg/dL Negative HPI General Mode of arrival: ambulatory. Date/Time Provider Initiated Documentation: 12/09/21 12:34. Limitations to Documentation: no limitations. Information obtained by: patient. HPI Narrative: This is a 26-year-old male, denies significant past medical history, presenting for what he describes as mild tingling and dysuria at the tip of his penis. This has been present since Friday evening. He is sexually active with 1 partner, unprotected, denies any known exposure to any potential STD. Patient denies any fever, abdominal pain, hematuria, pain or swelling in his testicles or scrotum, groin pain, back pain. Patient states a history of chlamydia 10 years ago for which she was treated appropriately. Patient reports that his partner is asymptomatic. He does not believe this is an STD and after speaking with his partner, she recommended coming to the ER because sometimes when she has a yeast infection she has similar symptoms. He denies any penis lesions or drainage Related Data Home Medications Medication Instructions Recorded Confirmed dextroamphetamine-amphetamine 10 mg PO DAILY PRN PRN 12/09/21 12/09/21 sulfamethoxazole-trimethoprim 1 tab PO BID #10 tab 12/09/21 [Bactrim DS] Previous Rx's Medication Instructions Recorded sulfamethoxazole-trimethoprim 1 tab PO BID #10 tab 12/09/21 [Bactrim DS] Allergies Allergy/AdvReac Type Severity Reaction Status Date / Time amoxicillin Allergy Severe Anaphylaxsi Unverified 09/26/21 08:17 s Penicillins Allergy Severe Anaphylaxsi Unverified 09/26/21 08:17 s General Stated Complaint: Male Reproductive Problem SINDHU: 4 Review of Systems Constitutional Constitutional: Denies fever(s) Gastrointestinal Gastrointestinal: Denies abdominal pain, Denies nausea and Denies vomiting Genitourinary Genitourinary: Denies hematuria, Reports dysuria, Denies penile discharge, Denies scrotal swelling, Denies testicular mass, Denies testicular pain, Denies urinary frequency, Denies urinary hesitancy and Denies urinary urgency Musculoskeletal Musculoskeletal: Denies back pain Integumentary/Breasts Skin/Breast: Denies rash PFSH All Active Problems Dysuria (Acute) Rupture of flexor tendon of left hand (Acute ~05/2021) Flexor digitorum superficialis left middle finger. Exudative tonsillitis (Acute) Social History Smoking/Tobacco Use Status: Former Tobacco Use Smoking risk assessment performed?: Yes Alcohol Intake: current Alcohol Intake frequency: holidays/special occasions only Drug use: Occasionally Substance use type: marijuana Current gender identity: male Do you feel safe at home: Yes Do you feel safe in your relationship?: Yes Exam Const General: cooperative, healthy appearing, comfortable and no acute distress Orientation: alert and awake [facility] Head: normal to inspection, normocephalic and atraumatic Eyes General: appearance normal, both eyes and all related structures Conjunctivae: conjunctivae normal Neck Neck: normal visual inspection, trachea midline and supple Resp Effort & Inspection: normal respiratory effort and able to speak in complete sentences GI Palpation: soft and nontender Male General Exam: Yes normal external exam Penis: normal penis Meatus: meatus normal Scrotum: scrotum normal Testes: normal Back/Spine/Pelvis Back: No back tenderness Skin General skin exam: no rashes or lesions noted Neuro General: patient alert, patient awake, moves all extremities and no focal motor deficits Sensory Exam: no sensory deficits noted Psych Appearance: grossly normal Mental Status: mental status grossly normal Course Vital Signs Vital signs: Vital Signs Temperature 36.7 C 12/09/21 12:26 Pulse 89 12/09/21 12:26 Respiratory Rate 12/09/21 12:26 Blood Pressure 131/79 12/09/21 12:26 Pulse Oximetry 99 12/09/21 12:26 Temperature 36.7 C 12/09/21 12:26 Temperature Source Temporal Artery Scan 12/09/21 12:26 Pulse 89 12/09/21 12:26 Respiratory Rate 16 12/09/21 12:26 Blood Pressure 131/79 12/09/21 12:26 Pulse Oximetry 99 12/09/21 12:26 Oxygen Delivery Method Room Air 12/09/21 12:26 Oxygen Flow Rate 0 12/09/21 12:26
[2021-12-09 13:51] LABS: Bilirubin Negative (Negative); Blood Negative (Negative); Clarity Clear (Clear); Glucose Negative (Negative); Ketones Negative (Negative); Leukocyte Esterase Trace (Negative); Nitrite Negative (Negative); Specific Gravity >= 1.030 (1.005-1.025); Urobilinogen 0.2 EU/dL (Up TO 0.2)
[2021-12-09 14:04] LABS: Bacteria Few HPF (Negative); C & S Indicated? No; Casts Negative LPF (Negative); Crystals Negative HPF (Negative); Epithelial Cells Few HPF (Negative); Mucus Heavy (Negative); RBC 0-2 HPF (0-2)
[2021-12-11 18:45] LABS: Chlamydia Result Negative (Negative); GC Result Negative (Negative)
== END 2021-12-09 14:59 | disposition home or self-care (01) ==
PROVIDERS: Emergency Provider Physician Assistant; PCP Physician Assistant
DX: R30.0 Dysuria (principal)
CPT/HCPCS: 87491; 87591; 99283; 81003; 81015; 87086

== ENCOUNTER 2025-05-13 15:12 | Outpatient (REF) | payer OTHER, SELFPAY ==
[2025-05-13 15:50] LABS: HCT 41.5 % (40.0-50.0); HGB 13.6 g/dL (13.5-17.5); MCH 30.3 pg (27.0-33.0); MCHC 32.8 % (32.0-36.0); MCV 92 fL (80-95); Platelet Count 280 10^3/uL (130-400); RBC 4.49 10^6/uL (4.36-5.78); RDW 13.8 % (11.8-14.1); RDW-SD 47.4 fL; WBC 6.51 10^3/uL (4.4-10.8)
== END 2025-05-13 15:13 | disposition home or self-care (01) ==
LOC: NCHCN 15:12
PROVIDERS: PCP Physician Assistant; Visit Provider Physician Assistant
DX: K59.09 Other constipation (principal)
CPT/HCPCS: 85027; 81003; 82043; 82570